=== PATIENT | female | born 1970 | race Hispanic/Latino ===

== ENCOUNTER 2019-06-11 10:03 | Outpatient (CLI) | payer BC ==
--- NOTE | 2019-06-11 21:22 | ULT ---
ABDOMINAL ULTRASOUND: 06/11/19 Ultrasonography of the abdomen was performed for evaluation of elevated liver function tests. The liver is somewhat large, measuring 17 cm in oblique sagittal length. It is homogeneously echo den se suggesting diffuse fatty infiltration. No focal hepatic abnormality was seen. There are no dilate d ducts. The gallbladder contains no signs of stones or wall thickening. The common bile duct was a n ormal 5 to 6 mm in caliber. The pancreas was mostly obscured by gas, but the visible portions appear normal. The spleen is normal in size. The aorta is not dilated. The right kidney is 10.7 cm in length and the left is 10.6 cm. No mass or hydronephrosis was seen in either. I would not that along the mi ddle third of the left kidney, there is a rounded hump along its outer surface. This area of tissue shows no difference in echogenicity than the remaining renal cortex and so is simply presumed to be a prominent hump or lobulation. IMPRESSION: 1. Mild hepatic enlargement with diffuse fatty infiltration of the liver. 2. Prominent hump on the outer portion of the left kidney that is felt to be a normal variant. 3. No acute abdominal findings otherwise. POS: HOME
== END 2019-06-11 10:04 | disposition home or self-care (01) ==
LOC: BURULT 10:03
PROVIDERS: ATTEND Family Medicine
DX: R94.5 Abnormal results of liver function studies (principal); R16.0 Hepatomegaly, not elsewhere classified; K76.0 Fatty (change of) liver, not elsewhere classified
CPT/HCPCS: 76700